=== PATIENT | female | born 1980 | race African-American/Black ===

== ENCOUNTER 2017-10-29 08:38 | Emergency (ER) | payer OTHER ==
[~2017-10-29] VITALS: Ht 175.3 cm; Wt 128.4 kg
[~2017-10-29 08:38] MED LIST: IBUPROFEN 800800 M1 PO; IMITREX 50 MG T50 MG PO; REGLAN 10 MG TA10 MG PO
[2017-10-29] MEDS ORDERED: XANAX1 MG PO (08:52)
[2017-10-29] MEDS ORDERED: UNICOMPLEX M TA1 TA1 PO (08:53)
[2017-10-29] MEDS ORDERED: BIOTIN1 MG PO (08:53)
[2017-10-29] MEDS ORDERED: ZOLOFT25 MG PO (08:53)
[2017-10-29 09:32] LABS: ABSOLUTE BASOPHILS 0.1 thou/uL (0.0-0.2); ABSOLUTE LYMPHOCYTES 1.1 thou/uL (0.8-5.3); ABSOLUTE MONOCYTES 0.4 thou/uL (0.0-1.2); ABSOLUTE NEUTROPHILS 7.3 thou/uL (1.6-8.1); BASOPHILS 0.9 %; EOSINOPHILS 0.1 %; HEMATOCRIT 35.4 % (37.0-47.0); HEMOGLOBIN 12.1 gm/dL (12.0-15.0); LYMPHOCYTES 12.7 %; MCH 32.4 pg (26.0-34.0); MCHC 34.1 g/dL (28.0-37.0); MCV 95.1 fL (80.0-100.0); MONOCYTES 4.9 %; MPV 10.2 fl. (7.2-11.1); NUCLEATED RBCS 0 /100WBC; PLATELET COUNT* 228 thou/uL (150-400); POLYS 81.4 %; RBC 3.72 mil/uL (4.20-5.00); RDW-CV 13.2 % (10.5-14.5)
[2017-10-29 09:58] LABS: CALCIUM 8.6 mg/dL (8.5-10.1); POTASSIUM 3.4 mmol/L (3.5-5.1)
[2017-10-29 10:03] LABS: ALBUMIN 3.5 g/dL (3.4-5.0); TOTAL BILIRUBIN 0.6 mg/dL (<0.1-1.0); TOTAL PROTEIN 7.4 g/dL (6.4-8.2)
[2017-10-29 10:16] LABS: URINE BILIRUBIN NEGATIVE (Negative); URINE BLOOD TRACE (Negative); URINE CLARITY CLEAR; URINE COLOR YELLOW; URINE GLUCOSE-RANDOM NEGATIVE (Negative); URINE KETONES NEGATIVE (Negative); URINE LEUKOCYTES-REFLEX NEGATIVE (Negative); URINE NITRITE-REFLEX NEGATIVE (Negative); URINE PROTEIN 2+ (Negative)
[2017-10-29 10:21] LABS: BACTERIA-REFLEX None Seen /HPF (None Seen); CASTS None Seen /LPF (None Seen); CRYSTALS None Seen /LPF (None Seen); MUCUS 4-6 Moderate strn/LPF (None Seen); SQUAMOUS 4-10 Moderate /LPF (0-3); URINE RBC 0-2 Rare /HPF (0-2); URINE WBC-REFLEX 0-5 Rare /HPF (0-5)
[2017-10-29] MEDS ORDERED: PERCOCET 5-3251 EACH PO (12:21)
[2017-10-29] MEDS ORDERED: AUGMENTIN 875-1 EACH PO (12:21)
[2017-10-29 12:56] VITALS: BP 193/101
[2017-10-29] MEDS ORDERED: CIPROFLOXACIN500 M1 PO (15:13)
[2017-10-29] MEDS ORDERED: FLAGYL500 MG PO (15:13)
== END 2017-10-29 12:58 | disposition left against medical advice (07) ==
LOC: M.ERS 08:38
PROVIDERS: Family Medicine
DX: K80.80 Other cholelithiasis without obstruction (principal); G43.909 Migraine, unspecified, not intractable, without status migrainosus; F41.9 Anxiety disorder, unspecified; Z98.890 Other specified postprocedural states; Z88.1 Allergy status to other antibiotic agents

== ENCOUNTER 2017-11-18 17:39 | Emergency (ER) | payer OTHER ==
[~2017-11-18] VITALS: Ht 175.3 cm; Wt 123.8 kg
[~2017-11-18 17:39] MED LIST changes: +AUGMENTIN 875-1 EACH PO; +BIOTIN1 MG PO; +CIPROFLOXACIN500 M1 PO; +FLAGYL500 MG PO; +PERCOCET 5-3251 EACH PO; +UNICOMPLEX M TA1 TA1 PO; +XANAX1 MG PO; +ZOLOFT25 MG PO
[2017-11-18] MEDS ORDERED: WELLBUTRIN XL300 MG PO (17:51)
[2017-11-18 18:20] LABS: ABSOLUTE LYMPHOCYTES 2.1 thou/uL (0.8-5.3); ABSOLUTE MONOCYTES 0.6 thou/uL (0.0-1.2); BASOPHILS 0.5 %; EOSINOPHILS 0.5 %; HEMOGLOBIN 12.8 gm/dL (12.0-15.0); LYMPHOCYTES 21.4 %; MCH 31.6 pg (26.0-34.0); MCHC 32.8 g/dL (28.0-37.0); MCV 96.5 fL (80.0-100.0); MONOCYTES 6.1 %; NUCLEATED RBCS 0 /100WBC; PLATELET COUNT* 248 thou/uL (150-400); POLYS 71.5 %; RBC 4.04 mil/uL (4.20-5.00); RDW-CV 13.7 % (10.5-14.5); WBC 9.8 thou/uL (4.0-11.0)
[2017-11-18 18:27] LABS: CALCIUM 8.8 mg/dL (8.5-10.1); CREATININE 1.1 mg/dL (0.6-1.3); POTASSIUM 3.7 mmol/L (3.5-5.1)
[2017-11-18 18:28] LABS: URINE BILIRUBIN NEGATIVE (Negative); URINE BLOOD 2+ (Negative); URINE CLARITY CLOUDY; URINE COLOR YELLOW; URINE GLUCOSE-RANDOM NEGATIVE (Negative); URINE KETONES NEGATIVE (Negative); URINE LEUKOCYTES-REFLEX NEGATIVE (Negative); URINE NITRITE-REFLEX NEGATIVE (Negative); URINE PROTEIN TRACE (Negative); URINE SPECIFIC GRAVITY >= 1.030 (1.005-1.030); URINE UROBILINOGEN 0.2 E.U./dl (0.2-1.0)
[2017-11-18 18:32] LABS: ALBUMIN 3.6 g/dL (3.4-5.0); TOTAL BILIRUBIN 0.5 mg/dL (<0.1-1.0); TOTAL PROTEIN 7.8 g/dL (6.4-8.2)
[2017-11-18 18:34] LABS: MUCUS 4-6 Moderate strn/LPF (None Seen); SQUAMOUS 4-10 Moderate /LPF (0-3)
[2017-11-18 18:35] LABS: AMORPHOUS URATES Many /LPF (None Seen)
[2017-11-18 18:36] LABS: CASTS None Seen /LPF (None Seen); URINE RBC 0-2 Rare /HPF (0-2)
[2017-11-18 18:37] LABS: BACTERIA-REFLEX 1-9 Few /HPF (None Seen); URINE WBC-REFLEX None Seen /HPF (0-5)
[2017-11-18] MEDS ORDERED: BENTYL 20 MG TA20 M1 PO (19:53)
[2017-11-18] MEDS ORDERED: PHENERGAN 25 MG25 M1 PO (19:53)
[2017-11-18] MEDS ORDERED: NORCO 5-325 TA1 EAC1 PO (19:53)
[2017-11-18 20:03] VITALS: BP 158/91
== END 2017-11-18 20:05 | disposition home or self-care (01) ==
LOC: M.ERS 17:39
PROVIDERS: Nurse Practitioner
DX: K80.80 Other cholelithiasis without obstruction (principal); G43.909 Migraine, unspecified, not intractable, without status migrainosus; F41.9 Anxiety disorder, unspecified; Z98.890 Other specified postprocedural states; Z88.0 Allergy status to penicillin

== ENCOUNTER 2018-01-18 00:19 | Emergency (ER) | payer OTHER ==
[~2018-01-18] VITALS: Ht 175.3 cm; Wt 125.2 kg
[~2018-01-18 00:19] MED LIST changes: +BENTYL 20 MG TA20 M1 PO; +NORCO 5-325 TA1 EAC1 PO; +PHENERGAN 25 MG25 M1 PO; +WELLBUTRIN XL300 MG PO
[2018-01-18 00:38] LABS: URINE BILIRUBIN NEGATIVE (Negative); URINE BLOOD 2+ (Negative); URINE CLARITY CLEAR; URINE COLOR YELLOW; URINE GLUCOSE-RANDOM NEGATIVE (Negative); URINE KETONES TRACE (Negative); URINE LEUKOCYTES-REFLEX NEGATIVE (Negative); URINE NITRITE-REFLEX NEGATIVE (Negative); URINE PROTEIN TRACE (Negative); URINE SPECIFIC GRAVITY >= 1.030 (1.005-1.030); URINE UROBILINOGEN 0.2 E.U./dl (0.2-1.0)
[2018-01-18 00:40] LABS: ABSOLUTE BASOPHILS 0.1 thou/uL (0.0-0.2); ABSOLUTE LYMPHOCYTES 2.1 thou/uL (0.8-5.3); ABSOLUTE MONOCYTES 0.5 thou/uL (0.0-1.2); ABSOLUTE NEUTROPHILS 5.5 thou/uL (1.6-8.1); BASOPHILS 0.9 %; EOSINOPHILS 0.5 %; HEMOGLOBIN 11.8 gm/dL (12.0-15.0); LYMPHOCYTES 25.7 %; MCH 31.1 pg (26.0-34.0); MCHC 32.8 g/dL (28.0-37.0); MCV 94.6 fL (80.0-100.0); MONOCYTES 6.4 %; MPV 8.6 fl. (7.2-11.1); NUCLEATED RBCS 0 /100WBC; PLATELET COUNT* 267 thou/uL (150-400); POLYS 66.5 %; RBC 3.81 mil/uL (4.20-5.00); RDW-CV 15.6 % (10.5-14.5); WBC 8.3 thou/uL (4.0-11.0)
[2018-01-18 00:48] LABS: CALCIUM 8.8 mg/dL (8.5-10.1); CREATININE 0.8 mg/dL (0.6-1.3); POTASSIUM 3.5 mmol/L (3.5-5.1)
[2018-01-18 00:52] LABS: ALBUMIN 3.3 g/dL (3.4-5.0); TOTAL BILIRUBIN 0.6 mg/dL (<0.1-1.0); TOTAL PROTEIN 7.8 g/dL (6.4-8.2)
[2018-01-18 01:02] LABS: CASTS None Seen /LPF (None Seen); CRYSTALS None Seen /LPF (None Seen); MUCUS 4-6 Moderate strn/LPF (None Seen); SQUAMOUS 4-10 Moderate /LPF (0-3); URINE RBC 3-10 Few /HPF (0-2); URINE WBC-REFLEX None Seen /HPF (0-5)
[2018-01-18 01:31] LABS: AMP/METHAMP Negative (Negative); BARBITURATES Negative (Negative); BENZODIAZEPINES Negative (Negative); COCAINE POSITIVE (Negative); METHADONE Negative (Negative); OPIATES Negative (Negative); PCP POSITIVE (Negative); THC Negative (Negative)
[2018-01-18] MEDS ORDERED: TRAMADOL 50 MG50 MG PO (03:15)
[2018-01-18 03:29] VITALS: BP 138/76
== END 2018-01-18 03:30 | disposition home or self-care (01) ==
LOC: M.ERS 00:19
PROVIDERS: Emergency Medicine
DX: N83.202 Unspecified ovarian cyst, left side (principal); G43.909 Migraine, unspecified, not intractable, without status migrainosus; F41.9 Anxiety disorder, unspecified; Z98.890 Other specified postprocedural states; Z88.0 Allergy status to penicillin

== ENCOUNTER 2018-03-26 20:20 | Emergency (ER) | payer OTHER ==
[~2018-03-26] VITALS: Ht 175.3 cm; Wt 119.8 kg
[~2018-03-26 20:20] MED LIST changes: +TRAMADOL 50 MG50 MG PO
[2018-03-26 20:25] VITALS: BP 146/121
== END 2018-03-26 20:51 | disposition home or self-care (01) ==
LOC: M.ERS 20:20
DX: G89.29 Other chronic pain (principal); M25.551 Pain in right hip; M25.512 Pain in left shoulder; G43.909 Migraine, unspecified, not intractable, without status migrainosus; F41.9 Anxiety disorder, unspecified; Z98.84 Bariatric surgery status; Z98.890 Other specified postprocedural states; Z88.0 Allergy status to penicillin

== ENCOUNTER 2018-03-28 07:25 | Emergency (ER) | payer OTHER ==
[~2018-03-28] VITALS: Ht 175.3 cm; Wt 119.9 kg
[2018-03-28 07:48] VITALS: BP 153/96
== END 2018-03-28 07:55 | disposition left against medical advice (07) ==
LOC: M.ERS 07:25
DX: G89.29 Other chronic pain (principal); M25.552 Pain in left hip; M25.512 Pain in left shoulder; G43.909 Migraine, unspecified, not intractable, without status migrainosus; F41.9 Anxiety disorder, unspecified; Z88.0 Allergy status to penicillin

== ENCOUNTER 2018-05-26 19:20 | Emergency (ER) | payer OTHER ==
[~2018-05-26] VITALS: Ht 175.3 cm; Wt 116.1 kg
[2018-05-26] MEDS ORDERED: UNICOMPLEX M TA1 TA1 PO (19:32)
[2018-05-26 20:19] LABS: ABSOLUTE LYMPHOCYTES 1.2 thou/uL (0.8-5.3); ABSOLUTE MONOCYTES 0.4 thou/uL (0.0-1.2); ABSOLUTE NEUTROPHILS 3.4 thou/uL (1.6-8.1); BASOPHILS 0.8 %; EOSINOPHILS 0.1 %; HEMATOCRIT 31.5 % (37.0-47.0); HEMOGLOBIN 10.3 gm/dL (12.0-15.0); LYMPHOCYTES 23.9 %; MCH 30.7 pg (26.0-34.0); MCHC 32.8 g/dL (28.0-37.0); MCV 93.7 fL (80.0-100.0); MONOCYTES 7.5 %; MPV 8.4 fl. (7.2-11.1); NUCLEATED RBCS 0 /100WBC; PLATELET COUNT* 132 thou/uL (150-400); POLYS 67.7 %; RBC 3.36 mil/uL (4.20-5.00); RDW-CV 17.8 % (10.5-14.5)
[2018-05-26 20:32] LABS: URINE BILIRUBIN NEGATIVE (Negative); URINE BLOOD 3+ (Negative); URINE CLARITY CLOUDY; URINE COLOR YELLOW; URINE GLUCOSE-RANDOM NEGATIVE (Negative); URINE KETONES NEGATIVE (Negative); URINE LEUKOCYTES-REFLEX NEGATIVE (Negative); URINE NITRITE-REFLEX NEGATIVE (Negative); URINE PROTEIN 1+ (Negative); URINE SPECIFIC GRAVITY >= 1.030 (1.005-1.030); URINE UROBILINOGEN 0.2 E.U./dl (0.2-1.0)
[2018-05-26 20:34] LABS: CALCIUM 8.4 mg/dL (8.5-10.1); CREATININE 0.8 mg/dL (0.6-1.3); POTASSIUM 3.4 mmol/L (3.5-5.1)
[2018-05-26 20:39] LABS: ALBUMIN 3.5 g/dL (3.4-5.0); TOTAL BILIRUBIN 0.5 mg/dL (<0.1-1.0); TOTAL PROTEIN 7.7 g/dL (6.4-8.2)
[2018-05-26 20:50] LABS: MUCUS 4-6 Moderate strn/LPF (None Seen); SQUAMOUS >10 Many /LPF (0-3); URINE RBC >20 Many /HPF (0-2)
[2018-05-26 20:51] LABS: BACTERIA-REFLEX 1-9 Few /HPF (None Seen); CASTS None Seen /LPF (None Seen); CRYSTALS None Seen /LPF (None Seen); URINE WBC-REFLEX 0-5 Rare /HPF (0-5)
[2018-05-26] MEDS ORDERED: PERCOCET 7.5-31 EACH PO (23:03)
[2018-05-26] MEDS ORDERED: PHENERGAN 25 MG25 M1 PO (23:03)
[2018-05-26 23:19] VITALS: BP 154/102
== END 2018-05-26 23:20 | disposition home or self-care (01) ==
LOC: M.ERS 19:20
PROVIDERS: Personal Emergency Response Attendant
DX: K85.90 Acute pancreatitis without necrosis or infection, unspecified (principal); G43.909 Migraine, unspecified, not intractable, without status migrainosus; F41.9 Anxiety disorder, unspecified; Z90.49 Acquired absence of other specified parts of digestive tract; Z98.890 Other specified postprocedural states; Z88.0 Allergy status to penicillin

== ENCOUNTER 2018-06-26 14:39 | Emergency (ER) | payer OTHER ==
[~2018-06-26] VITALS: Ht 175.3 cm; Wt 120.2 kg
[~2018-06-26 14:39] MED LIST changes: +PERCOCET 7.5-31 EACH PO
[2018-06-26] MEDS ORDERED: NORCO 5-325 TA1 EACH PO (16:04)
[2018-06-26 16:22] VITALS: BP 165/99
== END 2018-06-26 16:23 | disposition home or self-care (01) ==
LOC: M.ERS 14:39
DX: S82.435A Nondisplaced oblique fracture of shaft of left fibula, initial encounter for closed fracture (principal); S02.5XXA Fracture of tooth (traumatic), initial encounter for closed fracture; G43.909 Migraine, unspecified, not intractable, without status migrainosus; F41.9 Anxiety disorder, unspecified; Z98.84 Bariatric surgery status; Z90.49 Acquired absence of other specified parts of digestive tract; Z88.0 Allergy status to penicillin; W00.0XXA Fall on same level due to ice and snow, initial encounter; Y93.89 Activity, other specified; Y92.89 Other specified places as the place of occurrence of the external cause; Y99.8 Other external cause status